=== PATIENT | female | born 1965 | race Caucasian/White ===

== ENCOUNTER 2023-09-25 12:49 | Inpatient (IN) | payer OTHER ==
[~2023-09-25] VITALS: Ht 162.6 cm; Wt 93.9 kg
[~2023-09-25 12:49] MED LIST: BUSP10TA23 PO; TRAZ-252 PO
[2023-09-25] MEDS ORDERED: 0.9% SODIUM CHLORIDE 10 ML SYRINGE IVP PRN (13:15)
[2023-09-25] MEDS ORDERED: SODIUM CHLORIDE 0.9% 1,650 ML IV ONE (13:15)
[2023-09-25 13:44] VITALS: PULSE 84; RESP 18; O2SAT 95
[2023-09-25] MEDS: ALBUTEROL SULFATE 2.5 MG/0.5 ML NEB SOLUTION NEB ONE (13:44)
[2023-09-25] MEDS: IPRATROPIUM BROMIDE 0.5 MG/2.5 ML NEB SOLUTION NEB ONE (13:44)
[2023-09-25 13:51] LABS: ANION GAP 4 mmol/L (8-16); CALCIUM, TOTAL 9.3 mg/dL (8.8-10.5); CARBON DIOXIDE 30 mmol/L (22-29); CHLORIDE 99 mmol/L (98-107); CREATININE 0.99 mg/dL (0.60-1.30); GLOMERULAR FILTR. RATE CALC 58 mL/min (>60); GLUCOSE,RANDOM 106 mg/dL (70-110); POTASSIUM 3.6 mmol/L (3.5-5.1); SODIUM SERUM 133 mmol/L (136-145); UREA NITROGEN, BLOOD 21 mg/dL (7-18)
[2023-09-25] MEDS: PredniSONE 20 MG TABLET PO ONE (13:52)
[2023-09-25] MEDS: NITROGLYCERIN 2% (1 GM=INCH) OINTMENT PACKET TP ONE (13:52)
[2023-09-25 13:53] LABS: PROTHROMBIN TIME 10.9 SEC (9.4-11.6)
[2023-09-25 13:55] LABS: BASOPHILS % (AUTO) 0.3 % (0.0-2.0); EOSINOPHILS % (AUTO) 1.2 % (1.0-6.0); HEMOGLOBIN 13.8 g/dL (12.0-16.0); LYMPHOCYTES # (AUTO) 0.7 K/uL (1.0-4.8); LYMPHOCYTES % (AUTO) 3.7 % (22.0-44.0); MEAN CORPUSCULAR HEMOGLOBIN 27.7 pg (26.0-34.0); MEAN CORPUSCULAR HGB CONC 32.9 G/dL (31.0-37.0); MEAN CORPUSCULAR VOLUME 84 fL (80-100); MONOCYTES # (AUTO) 1.2 K/uL (0.1-1.0); MONOCYTES % (AUTO) 6.1 % (2.0-9.0); NEUTROPHILS # (AUTO) 17.2 K/uL (1.8-7.7); RED BLOOD CELL COUNT(AUTO) 4.99 MIL/uL (4.00-5.20); RED CELL DISTRIBUTION WIDTH 14.6 % (11.5-14.5); WHITE BLOOD COUNT (AUTO) 19.4 K/uL (4.5-11.0)
[2023-09-25 13:56] LABS: NEUTROPHILS % (AUTO) 88.7 % (40.0-70.0)
[2023-09-25 13:57] LABS: ALANINE AMINOTRANSFERASE 14 U/L (12-78); ALBUMIN 3.4 g/dL (3.4-5.0); ALKALINE PHOSPHATASE 83 U/L (46-116); ASPARTATE AMINOTRANSFERASE 18 U/L (15-37); BILIRUBIN,TOTAL 0.8 mg/dL (0.1-1.0); TOTAL PROTEIN, SERUM 7.4 g/dL (6.4-8.2)
[2023-09-25 13:58] LABS: TROPONIN I-HIGH SENSITIVITY 12 ng/L (<51)
[2023-09-25 13:59] VITALS: PULSE 86; RESP 22; O2SAT 95
[2023-09-25 14:19] LABS: B-TYPE NATRIURETIC PEPTIDE 51 pg/mL (0-100)
[2023-09-25 14:38] LABS: PLATELET COUNT (AUTO) 160 K/uL (150-450)
[2023-09-25] MEDS: HYDROCODONE/ACETAMINOPHEN 5-325 MG TABLET PO ONE (14:45)
[2023-09-25] MEDS: CefTRIAXone 1 GM/DEXTROSE 50 ML IV ONE (14:45)
[2023-09-25] MEDS: SODIUM CHLORIDE 0.9% 1,650 ML IV ONE (14:45)
[2023-09-25] MEDS: AZITHROMYCIN 500 MG/NS 250 ML IV ONE (14:45)
[2023-09-25] MEDS ORDERED: MAGNESIUM HYDROXIDE SUSPENSION 30 ML UDCUP PO PRN (18:45)
[2023-09-25] MEDS ORDERED: HYDROCODONE/ACETAMINOPHEN 5-325 MG TABLET PO PRN (18:45)
[2023-09-25] MEDS ORDERED: BISACODYL 10 MG RECTAL RECTAL SUPPOSITORY PR PRN (18:45)
[2023-09-25] MEDS ORDERED: ASPI-1450 PO (19:04)
[2023-09-25] MEDS ORDERED: LISI-894 PO (19:04)
[2023-09-25] MEDS ORDERED: BUSP15 PO (19:04)
[2023-09-25] MEDS ORDERED: DULO20CA71 PO (19:04)
[2023-09-25] MEDS: MORPHINE SULFATE 2 MG/ML SYRINGE IVP PRN (19:55)
[2023-09-25] MEDS: ONDANSETRON HCL 4 MG/2 ML VIAL IVP PRN (19:55)
[2023-09-25 22:42] VITALS: BP 127/83; PULSE 62; RESP 18; TEMP 97.5
[2023-09-25] MEDS: ZOLPIDEM TARTRATE 5 MG TABLET PO PRN (22:49)
[2023-09-25] MEDS: HEPARIN SODIUM,PORCINE 5,000 UNITS/ML VIAL SQ SCH (22:49)
[2023-09-26] VITALS (10 sets, daily range): BP systolic 99–121; BP diastolic 62–80; PULSE 65–80; RESP 18–22; TEMP 97.6–98.3; O2SAT 91–99
[2023-09-26 06:18] LABS: ALANINE AMINOTRANSFERASE 13 U/L (12-78); ALBUMIN 2.7 g/dL (3.4-5.0); ALKALINE PHOSPHATASE 63 U/L (46-116); ANION GAP 5 mmol/L (8-16); ASPARTATE AMINOTRANSFERASE 17 U/L (15-37); BILIRUBIN,TOTAL 0.6 mg/dL (0.1-1.0); CALCIUM, TOTAL 8.8 mg/dL (8.8-10.5); CARBON DIOXIDE 31 mmol/L (22-29); CHLORIDE 102 mmol/L (98-107); CREATININE 0.92 mg/dL (0.60-1.30); GLOMERULAR FILTR. RATE CALC > 60 mL/min (>60); GLUCOSE,RANDOM 136 mg/dL (70-110); POTASSIUM 4.8 mmol/L (3.5-5.1); SODIUM SERUM 138 mmol/L (136-145); TOTAL PROTEIN, SERUM 6.8 g/dL (6.4-8.2); UREA NITROGEN, BLOOD 25 mg/dL (7-18)
[2023-09-26] MEDS: ALBUTEROL SULFATE 2.5 MG/0.5 ML NEB SOLUTION NEB PRN (08:01)
[2023-09-26] MEDS: IPRATROPIUM BROMIDE 0.5 MG/2.5 ML NEB SOLUTION NEB PRN (08:01)
[2023-09-26] MEDS: PANTOPRAZOLE SODIUM 40 MG DR TABLET PO SCH (09:03)
[2023-09-26] MEDS: MethylPREDNISolone SOD SUCC 125 MG/2 ML VIAL IVP SCH (12:15)
[2023-09-26 12:34] LABS: APPEARANCE,URINE CLEAR (CLEAR); BILIRUBIN,URINE NEGATIVE (NEGATIVE); COLOR,URINE LIGHT YELLOW (YELLOW); GLUCOSE, URINE (UA) NEGATIVE (NEGATIVE); KETONES,URINE NEGATIVE (NEGATIVE); LEUKOCYTE ESTERASE ,URINE SMALL (NEGATIVE); NITRATE,URINE NEGATIVE (NEGATIVE); OCCULT BLOOD,URINE NEGATIVE (NEGATIVE); PROTEIN,URINE NEGATIVE (NEGATIVE); SPECIFIC GRAVITIY, URINE 1.015 (1.003-1.030); UROBILINOGEN,URINE <=1.0 mg/dL (<=1.0)
[2023-09-26 12:35] LABS: PH,URINE DRUG SCREEN 6.5 (5.0-8.0)
[2023-09-26 12:40] LABS: ALCOHOL, URINE DRUG SCREEN NEGATIVE (NEGATIVE); AMPHET/METH SCREEN,URINE NEGATIVE (NEGATIVE); BARBITURATE SCREEN, URINE NEGATIVE (NEGATIVE); BENZODIAZEPINES SCREEN,URINE NEGATIVE (NEGATIVE); CANNABINOID SCREEN,URINE NEGATIVE (NEGATIVE); COCAINE SCREEN,URINE NEGATIVE (NEGATIVE); METHADONE SCREEN, URINE NEGATIVE (NEGATIVE); OPIATE SCREEN,URINE POSITIVE (NEGATIVE); PHENCYCLIDINE SCREEN,URINE NEGATIVE (NEGATIVE)
[2023-09-26 12:52] LABS: BACTERIA,URINE None Seen /HPF (None Seen); RBC,URINE None Seen /HPF (0-2); SQUAMOUS EPITHELIAL CELL,UR Few /LPF (None Seen)
[2023-09-26] MEDS ORDERED: SODIUM CHLORIDE 0.9% 250 ML IV ONE (14:59)
[2023-09-26] MEDS: CefTRIAXone 1 GM/DEXTROSE 50 ML IV SCH (15:06)
[2023-09-26] MEDS: ACETAMINOPHEN 325 MG TABLET PO PRN (15:07)
[2023-09-26] MEDS: AZITHROMYCIN 500 MG/NS 250 ML IV SCH (16:28)
[2023-09-26] MEDS: BUDESONIDE 0.5 MG/2 ML NEB SOLUTION NEB SCH (19:50)
[2023-09-26] MEDS: BENZONATATE 100 MG CAPSULE PO PRN (21:33)
[2023-09-27] VITALS (12 sets, daily range): BP systolic 139–160; BP diastolic 81–96; PULSE 61–73; RESP 16–23; TEMP 97.8–98; O2SAT 97–99
[2023-09-27] MEDS ORDERED: SODIUM CHLORIDE 0.9% 100 ML ONE (15:35)
[2023-09-27] MEDS ORDERED: IOHEXOL 350 MG/ML 100 ML VIAL ONE (15:35)
[2023-09-27] MEDS: TraMADol HCL 50 MG TABLET PO PRN (17:10)
[2023-09-27] MEDS: TraZODone HCL 50 MG TABLET PO SCH (20:38)
[2023-09-27] MEDS: BusPIRone HCL 15 MG TABLET PO SCH (20:39)
[2023-09-27] MEDS: DULoxetine HCL 20 MG CAPSULE PO SCH (20:39)
[2023-09-28] VITALS (10 sets, daily range): BP systolic 104–144; BP diastolic 58–85; PULSE 50–66; RESP 18–20; TEMP 97.6–98.2; O2SAT 96–99
[2023-09-28 06:50] LABS: BASOPHILS % (AUTO) 0.6 % (0.0-2.0); EOSINOPHILS % (AUTO) 0 % (1.0-6.0); HEMATOCRIT 37.9 % (36-46); HEMOGLOBIN 12.6 g/dL (12.0-16.0); LYMPHOCYTES # (AUTO) 0.4 K/uL (1.0-4.8); LYMPHOCYTES % (AUTO) 3.3 % (22.0-44.0); MEAN CORPUSCULAR HEMOGLOBIN 28.2 pg (26.0-34.0); MEAN CORPUSCULAR HGB CONC 33.2 G/dL (31.0-37.0); MEAN CORPUSCULAR VOLUME 85 fL (80-100); MONOCYTES # (AUTO) 0.3 K/uL (0.1-1.0); MONOCYTES % (AUTO) 2.8 % (2.0-9.0); PLATELET COUNT (AUTO) 208 K/uL (150-450); RED BLOOD CELL COUNT(AUTO) 4.47 MIL/uL (4.00-5.20); RED CELL DISTRIBUTION WIDTH 14.7 % (11.5-14.5); WHITE BLOOD COUNT (AUTO) 10.7 K/uL (4.5-11.0)
[2023-09-28 06:55] LABS: NEUTROPHILS % (AUTO) 93.3 % (40.0-70.0)
[2023-09-28 07:01] LABS: CALCIUM, TOTAL 9.8 mg/dL (8.8-10.5); CREATININE 0.98 mg/dL (0.60-1.30); POTASSIUM 4.6 mmol/L (3.5-5.1)
[2023-09-28] MEDS: LISINOPRIL 20 MG TABLET PO SCH (08:20)
[2023-09-29] VITALS (9 sets, daily range): BP systolic 120–152; BP diastolic 68–103; PULSE 52–70; RESP 16–18; TEMP 97.5–98.2; O2SAT 98
[2023-09-29 06:38] LABS: EOSINOPHILS % (AUTO) 0 % (1.0-6.0); HEMATOCRIT 38.7 % (36-46); HEMOGLOBIN 12.6 g/dL (12.0-16.0); LYMPHOCYTES # (AUTO) 0.4 K/uL (1.0-4.8); MEAN CORPUSCULAR HEMOGLOBIN 27.8 pg (26.0-34.0); MEAN CORPUSCULAR HGB CONC 32.6 G/dL (31.0-37.0); MEAN CORPUSCULAR VOLUME 85 fL (80-100); MONOCYTES # (AUTO) 0.3 K/uL (0.1-1.0); MONOCYTES % (AUTO) 2.9 % (2.0-9.0); NEUTROPHILS # (AUTO) 8.2 K/uL (1.8-7.7); PLATELET COUNT (AUTO) 223 K/uL (150-450); RED BLOOD CELL COUNT(AUTO) 4.54 MIL/uL (4.00-5.20); RED CELL DISTRIBUTION WIDTH 14.9 % (11.5-14.5); WHITE BLOOD COUNT (AUTO) 8.8 K/uL (4.5-11.0)
[2023-09-29 06:58] LABS: NEUTROPHILS % (AUTO) 93.1 % (40.0-70.0)
[2023-09-29 07:02] LABS: CALCIUM, TOTAL 9.4 mg/dL (8.8-10.5); CREATININE 0.96 mg/dL (0.60-1.30); POTASSIUM 4.4 mmol/L (3.5-5.1)
[2023-09-30] VITALS (8 sets, daily range): BP systolic 138–153; BP diastolic 74–96; PULSE 54–76; RESP 18–20; TEMP 97.7–98.2; O2SAT 95–99
[2023-09-30 08:12] LABS: BASOPHILS % (AUTO) 0.2 % (0.0-2.0); EOSINOPHILS % (AUTO) 0 % (1.0-6.0); HEMATOCRIT 42.3 % (36-46); HEMOGLOBIN 13.7 g/dL (12.0-16.0); LYMPHOCYTES # (AUTO) 0.4 K/uL (1.0-4.8); LYMPHOCYTES % (AUTO) 6.2 % (22.0-44.0); MEAN CORPUSCULAR HEMOGLOBIN 27.8 pg (26.0-34.0); MEAN CORPUSCULAR HGB CONC 32.4 G/dL (31.0-37.0); MEAN CORPUSCULAR VOLUME 86 fL (80-100); MONOCYTES # (AUTO) 0.3 K/uL (0.1-1.0); MONOCYTES % (AUTO) 4.5 % (2.0-9.0); PLATELET COUNT (AUTO) 229 K/uL (150-450); RED BLOOD CELL COUNT(AUTO) 4.94 MIL/uL (4.00-5.20); WHITE BLOOD COUNT (AUTO) 6.7 K/uL (4.5-11.0)
[2023-09-30 08:13] LABS: NEUTROPHILS % (AUTO) 89.1 % (40.0-70.0)
[2023-09-30 08:14] LABS: CALCIUM, TOTAL 9.5 mg/dL (8.8-10.5); CREATININE 0.97 mg/dL (0.60-1.30); POTASSIUM 4.3 mmol/L (3.5-5.1)
[2023-09-30] MEDS ORDERED: SODIUM CHLORIDE 0.9% 250 ML IV ONE (14:03)
[2023-09-30 18:06] LABS: LEGIONELLA PNEUMO AG URINE Negative (Negative); S PNEUMO SOURCE Urine; STREP PNEUMONIAE AG URINE Negative (Negative)
[2023-10-01] VITALS (7 sets, daily range): BP systolic 133–151; BP diastolic 81–94; PULSE 54–70; RESP 17–18; TEMP 96.7–98.1; O2SAT 92–97
[2023-10-01] MEDS: MethylPREDNISolone SOD SUCC 125 MG/2 ML VIAL IVP SCH (16:31)
[2023-10-02] VITALS (12 sets, daily range): BP systolic 125–162; BP diastolic 53–102; PULSE 54–65; RESP 18–22; TEMP 97.8–98.4; O2SAT 93–99
[2023-10-02 07:09] LABS: BASOPHILS % (AUTO) 0.1 % (0.0-2.0); EOSINOPHILS % (AUTO) 0 % (1.0-6.0); HEMATOCRIT 38.7 % (36-46); HEMOGLOBIN 12.8 g/dL (12.0-16.0); LYMPHOCYTES # (AUTO) 0.3 K/uL (1.0-4.8); LYMPHOCYTES % (AUTO) 4.9 % (22.0-44.0); MEAN CORPUSCULAR HEMOGLOBIN 27.9 pg (26.0-34.0); MEAN CORPUSCULAR VOLUME 85 fL (80-100); MONOCYTES # (AUTO) 0.4 K/uL (0.1-1.0); MONOCYTES % (AUTO) 6.7 % (2.0-9.0); NEUTROPHILS # (AUTO) 5.4 K/uL (1.8-7.7); PLATELET COUNT (AUTO) 223 K/uL (150-450); RED BLOOD CELL COUNT(AUTO) 4.57 MIL/uL (4.00-5.20); RED CELL DISTRIBUTION WIDTH 14.8 % (11.5-14.5); WHITE BLOOD COUNT (AUTO) 6.1 K/uL (4.5-11.0)
[2023-10-02 07:25] LABS: NEUTROPHILS % (AUTO) 88.3 % (40.0-70.0)
[2023-10-02 07:27] LABS: ANION GAP 1 mmol/L (8-16); CALCIUM, TOTAL 8.9 mg/dL (8.8-10.5); CARBON DIOXIDE 34 mmol/L (22-29); CHLORIDE 103 mmol/L (98-107); CREATININE 0.87 mg/dL (0.60-1.30); GLOMERULAR FILTR. RATE CALC > 60 mL/min (>60); GLUCOSE,RANDOM 142 mg/dL (70-110); POTASSIUM 4.5 mmol/L (3.5-5.1); SODIUM SERUM 138 mmol/L (136-145); UREA NITROGEN, BLOOD 39 mg/dL (7-18)
[2023-10-02] MEDS ORDERED: SODIUM CHLORIDE 0.9% 250 ML IV ONE (14:45)
[2023-10-03 03:16] VITALS: BP 154/96; PULSE 54; RESP 18; TEMP 98
[2023-10-03 07:22] LABS: BASOPHILS % (AUTO) 0.3 % (0.0-2.0); EOSINOPHILS % (AUTO) 0.1 % (1.0-6.0); HEMATOCRIT 42.1 % (36-46); HEMOGLOBIN 13.8 g/dL (12.0-16.0); LYMPHOCYTES # (AUTO) 0.4 K/uL (1.0-4.8); LYMPHOCYTES % (AUTO) 5.7 % (22.0-44.0); MEAN CORPUSCULAR HEMOGLOBIN 27.8 pg (26.0-34.0); MEAN CORPUSCULAR HGB CONC 32.7 G/dL (31.0-37.0); MEAN CORPUSCULAR VOLUME 85 fL (80-100); MONOCYTES # (AUTO) 0.4 K/uL (0.1-1.0); MONOCYTES % (AUTO) 5.5 % (2.0-9.0); RED BLOOD CELL COUNT(AUTO) 4.95 MIL/uL (4.00-5.20); RED CELL DISTRIBUTION WIDTH 14.8 % (11.5-14.5); WHITE BLOOD COUNT (AUTO) 7.9 K/uL (4.5-11.0)
[2023-10-03 07:37] LABS: NEUTROPHILS % (AUTO) 88.4 % (40.0-70.0)
[2023-10-03 07:38] LABS: ANION GAP 6 mmol/L (8-16); CALCIUM, TOTAL 8.9 mg/dL (8.8-10.5); CARBON DIOXIDE 32 mmol/L (22-29); CHLORIDE 100 mmol/L (98-107); CREATININE 0.85 mg/dL (0.60-1.30); GLOMERULAR FILTR. RATE CALC > 60 mL/min (>60); GLUCOSE,RANDOM 137 mg/dL (70-110); POTASSIUM 4.6 mmol/L (3.5-5.1); SODIUM SERUM 138 mmol/L (136-145); UREA NITROGEN, BLOOD 34 mg/dL (7-18)
[2023-10-03 08:30] VITALS: BP 169/99; PULSE 60; RESP 18; TEMP 97.9
[2023-10-03 08:35] LABS: PLATELET COUNT (AUTO) 189 K/uL (150-450)
[2023-10-03] MEDS ORDERED: MIDAZOLAM HCL 2 MG/2 ML VIAL ONE (08:47)
[2023-10-03] MEDS ORDERED: FentaNYL CITRATE PF 100 MCG/2 ML VIAL ONE (08:47)
[2023-10-03] MEDS ORDERED: LIDOCAINE/PF 1% 30 ML VIAL ONE (08:47)
[2023-10-03 09:49] VITALS: PULSE 65; RESP 20; O2SAT 94
[2023-10-03 10:00] VITALS: PULSE 67; RESP 20; O2SAT 98
[2023-10-03 11:31] VITALS: BP 154/96; PULSE 66; RESP 18; TEMP 98
[2023-10-03] MEDS ORDERED: BUSP30TA2 PO (13:14)
[2023-10-03] MEDS ORDERED: DULO20CA71 PO (13:14)
[2023-10-03] MEDS ORDERED: PANT-31 PO (13:17)
[2023-10-03] MEDS ORDERED: TRAZ-184 PO (13:19)
[2023-10-03] MEDS ORDERED: BENZ100C68 PO (13:36)
[2023-10-03] MEDS ORDERED: PRED5TAB PO (13:42)
[2023-10-03] MEDS ORDERED: PRED20TA3 PO (13:42)
[2023-10-03] MEDS ORDERED: PRED10TA3 PO (13:42)
[2023-10-03] MEDS ORDERED: PRED-729 PO (13:49)
[2023-10-03] MEDS ORDERED: PRED-549 PO (13:49)
[2023-10-03] MEDS ORDERED: PRED-554 PO (13:49)
== END 2023-10-03 18:10 | DRG 177 ==
LOC: EMS 12:49 → EDH 21:28 → 5S 22:14
PROVIDERS: ADMIT Internal Medicine; ATTEND Internal Medicine
PROC: 05HD33Z Insertion of Infusion Device into Right Cephalic Vein, Percutaneous Approach (ICD-10-PCS; principal; 2023-09-27)
PROC: B54MZZA Ultrasonography of Right Upper Extremity Veins, Guidance (ICD-10-PCS; 2023-09-27)
DX: J15.69 Pneumonia due to other Gram-negative bacteria (principal); J96.00 Acute respiratory failure, unspecified whether with hypoxia or hypercapnia; J44.1 Chronic obstructive pulmonary disease with (acute) exacerbation; R65.10 Systemic inflammatory response syndrome (SIRS) of non-infectious origin without acute organ dysfunction; J44.0 Chronic obstructive pulmonary disease with (acute) lower respiratory infection; I25.10 Atherosclerotic heart disease of native coronary artery without angina pectoris; E11.9 Type 2 diabetes mellitus without complications; E66.01 Morbid (severe) obesity due to excess calories; E78.5 Hyperlipidemia, unspecified; F17.210 Nicotine dependence, cigarettes, uncomplicated; R91.1 Solitary pulmonary nodule; I11.0 Hypertensive heart disease with heart failure; I50.9 Heart failure, unspecified; Z91.040 Latex allergy status; Z88.0 Allergy status to penicillin; Z88.2 Allergy status to sulfonamides; Z88.8 Allergy status to other drugs, medicaments and biological substances; Z95.1 Presence of aortocoronary bypass graft; Z88.1 Allergy status to other antibiotic agents; Z98.891 History of uterine scar from previous surgery; Z68.35 Body mass index [BMI] 35.0-35.9, adult; Z79.899 Other long term (current) drug therapy
CPT/HCPCS: 36245; 36569; 71045; 71250; 71275; 76937; 80048; 80053; 80307; 81001; 83605; 83880; 84145; 84484; 85025; 85610; 87040; 87449; 87899; 93005; 93306; 93970; 94640; 96365; 96368; 99291; J0456; J0696; J1644; J2250; J2270; J2405; J2919; J3010; J3490; J7030; J7050; Q9967; 36415-L1; 36415-TC; J7613

== ENCOUNTER 2024-01-18 16:14 | Inpatient (IN) | payer OTHER ==
[~2024-01-18] VITALS: Ht 162.6 cm; Wt 108.2 kg
[~2024-01-18 16:14] MED LIST changes: +ACET-2247 PO; -BUSP10TA23 PO; +BUSP30TA2 PO; +CLIN300C58 PO; +DOCU-385 PO; +DULO20CA71 PO; +LISI-894 PO; +MAGN-169 PO; +PANT-31 PO; +TRAZ-184 PO; -TRAZ-252 PO
[2024-01-18 16:50] VITALS: PULSE 61; RESP 17; O2SAT 100
[2024-01-18] MEDS: IPRATROPIUM BROMIDE 0.5 MG/2.5 ML NEB SOLUTION NEB ONE (16:50)
[2024-01-18] MEDS: ALBUTEROL SULFATE 2.5 MG/0.5 ML NEB SOLUTION NEB ONE (16:50)
[2024-01-18 16:55] LABS: COVID AG,FIA SOURCE NASAL SWAB
[2024-01-18 16:58] LABS: APPEARANCE,URINE CLEAR (CLEAR); BILIRUBIN,URINE NEGATIVE (NEGATIVE); COLOR,URINE LIGHT YELLOW (YELLOW); GLUCOSE, URINE (UA) NEGATIVE (NEGATIVE); KETONES,URINE NEGATIVE (NEGATIVE); LEUKOCYTE ESTERASE ,URINE NEGATIVE (NEGATIVE); NITRATE,URINE NEGATIVE (NEGATIVE); OCCULT BLOOD,URINE NEGATIVE (NEGATIVE); PH,URINE 6.5 (5.0-8.0); PROTEIN,URINE 30-70 mg/dL (NEGATIVE); SPECIFIC GRAVITIY, URINE 1.015 (1.003-1.030); UROBILINOGEN,URINE <=1.0 mg/dL (<=1.0)
[2024-01-18 17:00] LABS: HEMATOCRIT 37.3 % (36-46); HEMOGLOBIN 12.1 g/dL (12.0-16.0); LYMPHOCYTES # (AUTO) 0.7 K/uL (1.0-4.8); LYMPHOCYTES % (AUTO) 13.3 % (22.0-44.0); MEAN CORPUSCULAR HEMOGLOBIN 28.3 pg (26.0-34.0); MEAN CORPUSCULAR HGB CONC 32.5 G/dL (31.0-37.0); MEAN CORPUSCULAR VOLUME 87 fL (80-100); MONOCYTES # (AUTO) 0.4 K/uL (0.1-1.0); MONOCYTES % (AUTO) 7.1 % (2.0-9.0); NEUTROPHILS # (AUTO) 4.2 K/uL (1.8-7.7); NEUTROPHILS % (AUTO) 76.6 % (40.0-70.0); PLATELET COUNT (AUTO) 224 K/uL (150-450); RED BLOOD CELL COUNT(AUTO) 4.29 MIL/uL (4.00-5.20); RED CELL DISTRIBUTION WIDTH 14.9 % (11.5-14.5); WHITE BLOOD COUNT (AUTO) 5.5 K/uL (4.5-11.0)
[2024-01-18 17:05] VITALS: PULSE 61; RESP 16; O2SAT 100
[2024-01-18 17:09] LABS: CALCIUM, TOTAL 9.2 mg/dL (8.8-10.5); CREATININE 1.04 mg/dL (0.60-1.30); POTASSIUM 4.6 mmol/L (3.5-5.1)
[2024-01-18 17:14] LABS: SARS-COV2 (COVID) ANTIGEN,FIA Negative (Negative)
[2024-01-18 17:17] LABS: TROPONIN I-HIGH SENSITIVITY 11 ng/L (<51)
[2024-01-18] MEDS: MethylPREDNISolone SOD SUCC 125 MG/2 ML VIAL IVP ONE (17:21)
[2024-01-18 17:34] LABS: ALBUMIN 3.4 g/dL (3.4-5.0); BILIRUBIN,TOTAL 0.5 mg/dL (0.1-1.0); TOTAL PROTEIN, SERUM 7.4 g/dL (6.4-8.2)
[2024-01-18] MEDS: MORPHINE SULFATE 2 MG/ML SYRINGE IVP ONE (17:42)
[2024-01-18] MEDS: VANCOMYCIN 1.25 GM/WATER(PEG) 250 ML IV ONE (18:15)
[2024-01-18 20:51] LABS: INFLUENZA TYPE A NEGATIVE FOR TYPE A (NEGATIVE); INFLUENZA TYPE B NEGATIVE FOR TYPE B (NEGATIVE)
[2024-01-18] MEDS ORDERED: ALBUTEROL SULFATE 2.5 MG/0.5 ML NEB SOLUTION NEB PRN (21:00)
[2024-01-18] MEDS ORDERED: ACETAMINOPHEN 325 MG TABLET PO PRN (21:00)
[2024-01-18] MEDS ORDERED: ONDANSETRON HCL 4 MG/2 ML VIAL IVP PRN (21:00)
[2024-01-18] MEDS ORDERED: IPRATROPIUM BROMIDE 0.5 MG/2.5 ML NEB SOLUTION NEB PRN (21:00)
[2024-01-18] MEDS: DULoxetine HCL 20 MG CAPSULE PO SCH (21:00)
[2024-01-18] MEDS ORDERED: MAGNESIUM HYDROXIDE SUSPENSION 30 ML UDCUP PO PRN (21:00)
[2024-01-18] MEDS ORDERED: ZOLPIDEM TARTRATE 5 MG TABLET PO PRN (21:00)
[2024-01-18] MEDS ORDERED: BISACODYL 10 MG RECTAL RECTAL SUPPOSITORY PR PRN (21:00)
[2024-01-18] MEDS ORDERED: OxyCODONE HCL/ACETAMINOPHEN 5-325 MG TABLET PO PRN (21:00)
[2024-01-18] MEDS: FUROSEMIDE 20 MG/2 ML VIAL IVP SCH (22:25)
[2024-01-18] MEDS: DOCUSATE SODIUM 100 MG CAPSULE PO SCH (22:27)
[2024-01-18] MEDS: TraZODone HCL 50 MG TABLET PO SCH (22:28)
[2024-01-18] MEDS ORDERED: PRED-549 PO (22:58)
[2024-01-18] MEDS ORDERED: DULO-114 PO (22:58)
[2024-01-18] MEDS ORDERED: TIOT185 IH (22:58)
[2024-01-18] MEDS ORDERED: GABA-1181 PO (22:58)
[2024-01-18] MEDS ORDERED: TRAZ-257 PO (22:58)
[2024-01-18] MEDS ORDERED: HYDR25TA84 PO (22:58)
[2024-01-18] MEDS ORDERED: MONT-35 PO (22:58)
[2024-01-18] MEDS ORDERED: CICL6.1H2 IH (22:58)
[2024-01-18] MEDS: IPRATROPIUM BROMIDE 0.5 MG/2.5 ML NEB SOLUTION NEB SCH (23:00)
[2024-01-18] MEDS: ALBUTEROL SULFATE 2.5 MG/0.5 ML NEB SOLUTION NEB SCH (23:00)
[2024-01-18] MEDS: CeFAZolin 1 GM/DEXTROSE 50 ML IV SCH (23:44)
[2024-01-18] MEDS: MethylPREDNISolone SOD SUCC 125 MG/2 ML VIAL IVP SCH (23:47)
[2024-01-18] MEDS: HEPARIN SODIUM,PORCINE 5,000 UNITS/ML VIAL SQ SCH (23:48)
[2024-01-18] MEDS: MORPHINE SULFATE 2 MG/ML SYRINGE IVP PRN (23:49)
[2024-01-19] VITALS (8 sets, daily range): BP systolic 125–154; BP diastolic 74–86; PULSE 63–68; RESP 16–19; TEMP 97.6–98.6; O2SAT 94–96
[2024-01-19] MEDS ORDERED: SODIUM CHLORIDE 0.9% 250 ML IV ONE (08:39)
[2024-01-19] MEDS: PANTOPRAZOLE SODIUM 40 MG DR TABLET PO SCH (08:44)
[2024-01-19] MEDS: LISINOPRIL 20 MG TABLET PO SCH (08:44)
[2024-01-19] MEDS: BENZONATATE 100 MG CAPSULE PO SCH (18:59)
[2024-01-19] MEDS: BUDESONIDE 0.5 MG/2 ML NEB SOLUTION NEB SCH (19:45)
[2024-01-19] MEDS: MethylPREDNISolone SOD SUCC 125 MG/2 ML VIAL IVP SCH (23:46)
[2024-01-20] VITALS (14 sets, daily range): BP systolic 119–148; BP diastolic 63–87; PULSE 55–80; RESP 16–19; TEMP 97.7–98.2; O2SAT 93–99
[2024-01-20] MEDS: BusPIRone HCL 15 MG TABLET PO SCH (11:31)
[2024-01-21] VITALS (11 sets, daily range): BP systolic 115–156; BP diastolic 64–97; PULSE 61–81; RESP 16–18; TEMP 97.7–98.8; O2SAT 93–100
[2024-01-21] MEDS: PredniSONE 10 MG TABLET PO SCH (11:51)
[2024-01-21] MEDS ORDERED: MethylPREDNISolone SOD SUCC 40 MG/ML VIAL IVP SCH (12:00)
[2024-01-21 13:03] LABS: CALCIUM, TOTAL 9.2 mg/dL (8.8-10.5); CREATININE 1.11 mg/dL (0.60-1.30); POTASSIUM 3.8 mmol/L (3.5-5.1)
[2024-01-21 13:25] LABS: BASOPHILS % (AUTO) 0.1 % (0.0-2.0); EOSINOPHILS % (AUTO) 0 % (1.0-6.0); HEMATOCRIT 45.3 % (36-46); HEMOGLOBIN 14.5 g/dL (12.0-16.0); LYMPHOCYTES # (AUTO) 0.3 K/uL (1.0-4.8); LYMPHOCYTES % (AUTO) 3.6 % (22.0-44.0); MEAN CORPUSCULAR HEMOGLOBIN 28.2 pg (26.0-34.0); MEAN CORPUSCULAR VOLUME 88 fL (80-100); MONOCYTES # (AUTO) 0.6 K/uL (0.1-1.0); MONOCYTES % (AUTO) 6.6 % (2.0-9.0); NEUTROPHILS # (AUTO) 8.4 K/uL (1.8-7.7); NEUTROPHILS % (AUTO) 89.7 % (40.0-70.0); PLATELET COUNT (AUTO) 203 K/uL (150-450); RED BLOOD CELL COUNT(AUTO) 5.14 MIL/uL (4.00-5.20); RED CELL DISTRIBUTION WIDTH 14.7 % (11.5-14.5); WHITE BLOOD COUNT (AUTO) 9.3 K/uL (4.5-11.0)
[2024-01-21 13:26] LABS: RBC MORPHOLOGY COMMENT NORMAL RBC MORPH
[2024-01-22] VITALS (11 sets, daily range): BP systolic 125–149; BP diastolic 75–85; PULSE 54–70; RESP 14–18; TEMP 98.1–98.4; O2SAT 91–100
[2024-01-22] MEDS ORDERED: SODIUM CHLORIDE 0.9% 100 ML ONE (09:11)
[2024-01-22] MEDS ORDERED: BENZ-227 PO (14:34)
[2024-01-22] MEDS ORDERED: PRED-729 PO (14:37)
[2024-01-22] MEDS ORDERED: IPRA4AER IH (14:54)
[2024-01-22] MEDS ORDERED: ALBU90AE IH (14:55)
== END 2024-01-22 19:00 | DRG 291 ==
LOC: EMS 16:16 → EDH 21:17 → 5S 01-19 02:02
PROVIDERS: ADMIT Hospitalist; ATTEND Hospitalist
DX: I11.0 Hypertensive heart disease with heart failure (principal); I50.31 Acute diastolic (congestive) heart failure; J96.01 Acute respiratory failure with hypoxia; J44.1 Chronic obstructive pulmonary disease with (acute) exacerbation; L03.116 Cellulitis of left lower limb; Z68.41 Body mass index [BMI] 40.0-44.9, adult; L03.115 Cellulitis of right lower limb; Z20.822 Contact with and (suspected) exposure to COVID-19; Z72.0 Tobacco use; E66.9 Obesity, unspecified; I25.10 Atherosclerotic heart disease of native coronary artery without angina pectoris; Z88.0 Allergy status to penicillin; Z88.2 Allergy status to sulfonamides; Z88.8 Allergy status to other drugs, medicaments and biological substances; Z95.1 Presence of aortocoronary bypass graft
CPT/HCPCS: 71045; 80048; 80053; 81003; 82550; 83880; 84484; 85025; 87804; 93005; 94640; 97163; 99285; G0378; J0690; J1644; J1940; J2270; J2919; J7050; 36415-L1; 36415-TC; J7512; J7613; Z7610

== ENCOUNTER 2024-09-06 23:01 | Inpatient (IN) | payer OTHER ==
[~2024-09-06] VITALS: Ht 167.6 cm; Wt 91.2 kg
[~2024-09-06 23:01] MED LIST changes: +ALBU90AE IH; +BENZ-227 PO; +CICL6.1H2 IH; -CLIN300C58 PO; -DULO20CA71 PO; +DULO30CA89 PO; +GABA-1181 PO; +HYDR25TA84 PO; +IPRA4AER IH; +MONT-35 PO; +PRED-729 PO; +TIOT185 IH; -TRAZ-184 PO; +TRAZ-257 PO
[2024-09-07] MEDS: TraMADol HCL 50 MG TABLET PO ONE ×2 (00:26→23:20)
[2024-09-07] MEDS: VANCOMYCIN 1GM/WATER(PEG/NADA) 200 ML IV ONE (01:43)
[2024-09-07 01:47] LABS: BASOPHILS % (AUTO) 2.1 % (0.0-2.0); EOSINOPHILS % (AUTO) 10.6 % (1.0-6.0); HEMATOCRIT 33.4 % (36-46); LYMPHOCYTES # (AUTO) 0.8 K/uL (1.0-4.8); LYMPHOCYTES % (AUTO) 23.7 % (22.0-44.0); MEAN CORPUSCULAR HEMOGLOBIN 27.6 pg (26.0-34.0); MEAN CORPUSCULAR HGB CONC 33.1 G/dL (31.0-37.0); MEAN CORPUSCULAR VOLUME 83 fL (80-100); MONOCYTES # (AUTO) 0.5 K/uL (0.1-1.0); MONOCYTES % (AUTO) 14.1 % (2.0-9.0); NEUTROPHILS # (AUTO) 1.7 K/uL (1.8-7.7); NEUTROPHILS % (AUTO) 49.5 % (40.0-70.0); PLATELET COUNT (AUTO) 287 K/uL (150-450); RED BLOOD CELL COUNT(AUTO) 4.01 MIL/uL (4.00-5.20); RED CELL DISTRIBUTION WIDTH 16.4 % (11.5-14.5); WHITE BLOOD COUNT (AUTO) 3.4 K/uL (4.5-11.0)
[2024-09-07 01:57] LABS: ANION GAP 3 mmol/L (8-16); CARBON DIOXIDE 31 mmol/L (22-29); CHLORIDE 107 mmol/L (98-107); CREATININE 0.94 mg/dL (0.60-1.30); GLOMERULAR FILTR. RATE CALC > 60 mL/min (>60); GLUCOSE,RANDOM 82 mg/dL (70-110); POTASSIUM 4.1 mmol/L (3.5-5.1); SODIUM SERUM 141 mmol/L (136-145); UREA NITROGEN, BLOOD 11 mg/dL (7-18)
[2024-09-07 02:01] LABS: BILIRUBIN,DIRECT 0.1 mg/dL (0.00-0.20); BILIRUBIN,TOTAL 0.5 mg/dL (0.1-1.0); TOTAL PROTEIN, SERUM 6.4 g/dL (6.4-8.2)
[2024-09-07 02:06] LABS: TROPONIN I-HIGH SENSITIVITY 6 ng/L (<51)
[2024-09-07 02:08] LABS: LACTIC ACID 0.6 mmol/L (0.4-2.0)
[2024-09-07] MEDS: MORPHINE SULFATE 2 MG/ML SYRINGE IVP ONE ×2 (02:14→16:37)
[2024-09-07] MEDS: DiphenhydrAMINE HCL 50 MG/ML VIAL IVP ONE (02:39)
[2024-09-07] MEDS ORDERED: ONDANSETRON HCL 4 MG/2 ML VIAL IVP PRN (05:00)
[2024-09-07] MEDS: FUROSEMIDE 20 MG/2 ML VIAL IVP SCH (06:00)
[2024-09-07] MEDS ORDERED: IPRATROPIUM BROMIDE 0.5 MG/2.5 ML NEB SOLUTION NEB PRN (06:30)
[2024-09-07] MEDS ORDERED: ALBUTEROL SULFATE 2.5 MG/0.5 ML NEB SOLUTION NEB PRN (06:30)
[2024-09-07] MEDS: VANCOMYCIN HCL 1 GM/D5% WATER 200 ML IV SCH (08:00)
[2024-09-07 09:00] VITALS: BP 121/87; PULSE 85; RESP 18; TEMP 98.2; O2SAT 100
[2024-09-07] MEDS: DOCUSATE SODIUM 100 MG CAPSULE PO SCH (09:00)
[2024-09-07] MEDS ORDERED: SODIUM CHLORIDE 0.9% 0 ML ONE (10:00)
[2024-09-07] MEDS: MethylPREDNISolone SOD SUCC 40 MG/ML VIAL IVP SCH (10:08)
[2024-09-07] MEDS: ACETAMINOPHEN 325 MG TABLET PO PRN (10:10)
[2024-09-07] MEDS: HEPARIN SODIUM,PORCINE 5,000 UNITS/ML VIAL SQ SCH (10:10)
[2024-09-07] MEDS: lisinopriL 20 MG TABLET PO SCH (10:44)
[2024-09-07 11:50] VITALS: BP 121/77; PULSE 76; RESP 18; TEMP 98.2; O2SAT 95
[2024-09-07 12:00] VITALS: BP 121/77; PULSE 76; RESP 18; TEMP 98.2; O2SAT 98
[2024-09-07] MEDS: BusPIRone HCL 15 MG TABLET PO SCH (13:44)
[2024-09-07] MEDS: DULoxetine HCL 30 MG CAPSULE PO SCH (13:44)
[2024-09-07] MEDS: GABAPENTIN 100 MG CAPSULE PO SCH (13:44)
[2024-09-07 17:08] VITALS: BP 129/66; PULSE 80; RESP 18; TEMP 97.7; O2SAT 92
[2024-09-07 20:00] VITALS: BP 117/68; PULSE 82; RESP 17; TEMP 99; O2SAT 93
[2024-09-07] MEDS ORDERED: BUPR1TAB46 SL (20:00)
[2024-09-07] MEDS ORDERED: LEVOFLOXACIN 250 MG/D5% WATER 50 ML IV SCH (20:30)
[2024-09-07] MEDS: *CLINICAL-LEVOFLOXACIN IVPB DOSING CLINICAL ONE (20:31)
[2024-09-07] MEDS ORDERED: SODIUM CHLORIDE 0.9% 250 ML IV ONE (22:58)
[2024-09-07] MEDS: LEVOFLOXACIN 500 MG/D5% WATER 100 ML IV SCH (23:02)
[2024-09-07] MEDS: DiphenhydrAMINE HCL 25 MG CAPSULE PO ONE (23:45)
[2024-09-07 23:51] VITALS: BP 136/83; PULSE 72; RESP 17; TEMP 98.7; O2SAT 94
[2024-09-08 04:25] VITALS: BP 137/82; PULSE 77; RESP 17; TEMP 98.2; O2SAT 94
[2024-09-08 07:59] LABS: BASOPHILS % (AUTO) 0.3 % (0.0-2.0); EOSINOPHILS % (AUTO) 0.1 % (1.0-6.0); HEMATOCRIT 35.4 % (36-46); HEMOGLOBIN 11.6 g/dL (12.0-16.0); LYMPHOCYTES # (AUTO) 0.3 K/uL (1.0-4.8); LYMPHOCYTES % (AUTO) 7.2 % (22.0-44.0); MEAN CORPUSCULAR HEMOGLOBIN 27.5 pg (26.0-34.0); MEAN CORPUSCULAR HGB CONC 32.7 G/dL (31.0-37.0); MEAN CORPUSCULAR VOLUME 84 fL (80-100); MONOCYTES # (AUTO) 0.1 K/uL (0.1-1.0); NEUTROPHILS # (AUTO) 3.6 K/uL (1.8-7.7); PLATELET COUNT (AUTO) 286 K/uL (150-450); RED BLOOD CELL COUNT(AUTO) 4.21 MIL/uL (4.00-5.20); RED CELL DISTRIBUTION WIDTH 16.3 % (11.5-14.5)
[2024-09-08 08:05] LABS: ANION GAP 3 mmol/L (8-16); CALCIUM, TOTAL 9.2 mg/dL (8.8-10.5); CARBON DIOXIDE 31 mmol/L (22-29); CHLORIDE 103 mmol/L (98-107); GLOMERULAR FILTR. RATE CALC > 60 mL/min (>60); GLUCOSE,RANDOM 146 mg/dL (70-110); POTASSIUM 4.4 mmol/L (3.5-5.1); SODIUM SERUM 137 mmol/L (136-145); UREA NITROGEN, BLOOD 17 mg/dL (7-18)
[2024-09-08 08:11] LABS: NEUTROPHILS % (AUTO) 90.4 % (40.0-70.0)
[2024-09-08 08:43] VITALS: BP 139/84; PULSE 75; RESP 18; TEMP 98.2; O2SAT 93
[2024-09-08] MEDS: BUPRENORPHINE HCL/NALOXONE HCL 8-2 MG SUBLINGUAL TABLET SL SCH (08:48)
[2024-09-08 11:19] VITALS: BP 124/70; PULSE 81; RESP 18; TEMP 97.2; O2SAT 93
[2024-09-08 15:18] VITALS: BP 127/82; PULSE 70; RESP 18; TEMP 98.1; O2SAT 92
[2024-09-08] MEDS: DiphenhydrAMINE HCL 25 MG CAPSULE PO PRN (16:51)
[2024-09-08 20:00] VITALS: BP 142/91; PULSE 79; RESP 17; TEMP 98.2; O2SAT 93
[2024-09-08] MEDS: NITROFURANTOIN MONOHYD/M-CRYST 100 MG CAPSULE [MACROBID] PO SCH (21:00)
[2024-09-09] VITALS: BP 136/90; PULSE 76; RESP 18; TEMP 98.4; O2SAT 94
[2024-09-09 04:36] VITALS: BP 148/91; PULSE 67; RESP 17; TEMP 97.9; O2SAT 95
[2024-09-09 08:28] VITALS: BP 147/84; PULSE 75; RESP 18; TEMP 98.6; O2SAT 96
[2024-09-09 09:45] LABS: ANION GAP 10 mmol/L (8-16); CALCIUM, TOTAL 9.1 mg/dL (8.8-10.5); CARBON DIOXIDE 31 mmol/L (22-29); CHLORIDE 102 mmol/L (98-107); CREATININE 0.94 mg/dL (0.60-1.30); GLOMERULAR FILTR. RATE CALC > 60 mL/min (>60); GLUCOSE,RANDOM 179 mg/dL (70-110); POTASSIUM 4.4 mmol/L (3.5-5.1); SODIUM SERUM 143 mmol/L (136-145); UREA NITROGEN, BLOOD 27 mg/dL (7-18)
[2024-09-09 11:03] VITALS: BP 139/83; PULSE 74; RESP 19; TEMP 97.8; O2SAT 96
[2024-09-09 11:31] VITALS: BP 158/74; PULSE 72; RESP 16; TEMP 97.9
[2024-09-09 20:35] VITALS: BP 149/85; PULSE 77; RESP 18; TEMP 97.7; O2SAT 97
[2024-09-10] MEDS: FUROSEMIDE 20 MG/2 ML VIAL IVP ONE (08:44)
[2024-09-10 09:10] VITALS: BP 159/92; PULSE 57; RESP 18; TEMP 97.9; O2SAT 96
[2024-09-10 10:02] LABS: CALCIUM, TOTAL 9.1 mg/dL (8.8-10.5); CREATININE 0.95 mg/dL (0.60-1.30); POTASSIUM 4.3 mmol/L (3.5-5.1)
[2024-09-10 21:00] VITALS: BP 155/93; PULSE 68; RESP 18; TEMP 98.2; O2SAT 94
[2024-09-11 04:03] VITALS: BP 153/95; PULSE 62; RESP 18; TEMP 97.4; O2SAT 94
[2024-09-11 07:23] LABS: ANION GAP 4 mmol/L (8-16); CALCIUM, TOTAL 9.2 mg/dL (8.8-10.5); CARBON DIOXIDE 31 mmol/L (22-29); CHLORIDE 102 mmol/L (98-107); CREATININE 0.89 mg/dL (0.60-1.30); GLOMERULAR FILTR. RATE CALC > 60 mL/min (>60); GLUCOSE,RANDOM 120 mg/dL (70-110); POTASSIUM 4.4 mmol/L (3.5-5.1); SODIUM SERUM 137 mmol/L (136-145); UREA NITROGEN, BLOOD 39 mg/dL (7-18)
[2024-09-11 08:35] VITALS: BP 178/107; PULSE 66; RESP 18; TEMP 97.7; O2SAT 98
[2024-09-11 09:40] VITALS: BP 139/69
[2024-09-11] MEDS ORDERED: PredniSONE 10 MG TABLET PO SCH (10:30)
[2024-09-11 11:16] LABS: BASOPHILS % (AUTO) 0.8 % (0.0-2.0); EOSINOPHILS % (AUTO) 0.1 % (1.0-6.0); HEMATOCRIT 40.5 % (36-46); HEMOGLOBIN 13.2 g/dL (12.0-16.0); LYMPHOCYTES # (AUTO) 0.5 K/uL (1.0-4.8); LYMPHOCYTES % (AUTO) 7.4 % (22.0-44.0); MEAN CORPUSCULAR HEMOGLOBIN 27.7 pg (26.0-34.0); MEAN CORPUSCULAR HGB CONC 32.6 G/dL (31.0-37.0); MEAN CORPUSCULAR VOLUME 85 fL (80-100); MONOCYTES # (AUTO) 0.5 K/uL (0.1-1.0); MONOCYTES % (AUTO) 6.8 % (2.0-9.0); NEUTROPHILS # (AUTO) 5.8 K/uL (1.8-7.7); NEUTROPHILS % (AUTO) 84.9 % (40.0-70.0); PLATELET COUNT (AUTO) 323 K/uL (150-450); RED BLOOD CELL COUNT(AUTO) 4.76 MIL/uL (4.00-5.20); RED CELL DISTRIBUTION WIDTH 16.9 % (11.5-14.5); WHITE BLOOD COUNT (AUTO) 6.8 K/uL (4.5-11.0)
[2024-09-11] MEDS: AmLODIPine BESYLATE 5 MG TABLET PO SCH (11:56)
[2024-09-11 16:24] VITALS: BP 164/90; PULSE 69; RESP 18; TEMP 98.1; O2SAT 98
[2024-09-11 19:19] VITALS: BP 147/82; PULSE 60; RESP 18; TEMP 98.6; O2SAT 94
[2024-09-11] MEDS: TraZODone HCL 100 MG TABLET PO SCH (20:02)
[2024-09-12 04:35] VITALS: BP 130/70; PULSE 52; RESP 19; TEMP 98.1; O2SAT 93
[2024-09-12 07:31] LABS: CHLORIDE 101 mmol/L (98-107); CREATININE 0.94 mg/dL (0.60-1.30); GLOMERULAR FILTR. RATE CALC > 60 mL/min (>60); GLUCOSE,RANDOM 88 mg/dL (70-110); POTASSIUM 3.9 mmol/L (3.5-5.1); SODIUM SERUM 136 mmol/L (136-145); UREA NITROGEN, BLOOD 42 mg/dL (7-18)
[2024-09-12 07:34] LABS: CARBON DIOXIDE 36 mmol/L (22-29)
[2024-09-12 07:38] LABS: ANION GAP 1 mmol/L (8-16)
[2024-09-12 08:05] VITALS: BP 163/91; PULSE 54; RESP 20; TEMP 98.2; O2SAT 95
[2024-09-12] MEDS: PredniSONE 10 MG TABLET PO SCH (08:49)
[2024-09-12] MEDS ORDERED: NITR-104 PO (10:09)
== END 2024-09-12 13:00 | DRG 602 ==
LOC: EMS 23:04 → EDH 09-07 04:55 → 5N 09-07 08:40 → 6S 09-09 11:23
PROVIDERS: ADMIT Internal Medicine; ATTEND Internal Medicine
DX: L03.116 Cellulitis of left lower limb (principal); J96.01 Acute respiratory failure with hypoxia; F11.20 Opioid dependence, uncomplicated; J44.1 Chronic obstructive pulmonary disease with (acute) exacerbation; I11.0 Hypertensive heart disease with heart failure; E66.01 Morbid (severe) obesity due to excess calories; I50.9 Heart failure, unspecified; F19.10 Other psychoactive substance abuse, uncomplicated; Z68.32 Body mass index [BMI] 32.0-32.9, adult; I25.10 Atherosclerotic heart disease of native coronary artery without angina pectoris; I89.0 Lymphedema, not elsewhere classified; Z88.0 Allergy status to penicillin; Z87.891 Personal history of nicotine dependence; Z88.2 Allergy status to sulfonamides; Z88.8 Allergy status to other drugs, medicaments and biological substances; Z91.148 Patient's other noncompliance with medication regimen for other reason
CPT/HCPCS: 71045; 80048; 80076; 80202; 83605; 83735; 83880; 84484; 85025; 87040; 93005; 93970; 96365; 96375; 97116; 97162; 99291; J1200; J1644; J1940; J1956; J2270; J3370; J7030; J7050; 36415-L1; 36415-TC; J7512; Z7610